=== PATIENT | male | born 1980 | race Caucasian/White ===

== ENCOUNTER → 2021-01-06 | Outpatient (CLI) | payer OTHER ==
--- NOTE | 2021-01-06 11:42 | XR ---
EXAMINATION TYPE: XR chest 2V DATE OF EXAM: 01/06/2021 COMPARISON: NONE HISTORY: Chest pain TECHNIQUE: Frontal and lateral views of the chest are obtained. FINDINGS: There is no focal air space opacity. No evidence for pneumothorax. No pleural effusion. The cardiac silhouette size is within normal limits. The osseous structures are grossly intact. IMPRESSION: 1. No acute cardiopulmonary process.
== END | disposition home or self-care (01) ==
LOC: RADXRMAIN 10:51
PROVIDERS: ATTEND Orthopaedic Surgery Orthopaedic Surgery of the Spine
DX: R07.9 Chest pain, unspecified (principal)
CPT/HCPCS: 71046

== ENCOUNTER → 2021-01-20 | Outpatient (CLI) | payer OTHER ==
--- NOTE | 2021-01-21 03:24 | MR ---
EXAMINATION TYPE: MR lumbar spine wo con DATE OF EXAM: 01/20/2021 COMPARISON: None HISTORY: Back pain into left buttocks/leg Multiplanar multiecho imaging of the lumbar spine was performed with no contrast. Lumbar vertebra have fairly normal alignment. There is slight decreased signal in the disks at L4-5 a nd L5-S1. There is no significant disc space narrowing. Lumbar nerve roots appear normal. The lumbar neural foramina are fairly well-maintained. There is no compression fracture. There is a small collections professional ior disc bulge at L4-5 and slightly elevating the posterior longitudinal ligament. There is developme ntally adequate spinal canal. There is no spinal stenosis. There is no lumbar paraspinal mass. Sacroi liac joints are intact. IMPRESSION: Small posterior L4-5 lumbar disc herniation without impingement on the neural elements. No fracture. Minor degenerative disc signal changes at L4-5 and L5-S1.
== END | disposition home or self-care (01) ==
LOC: RADMRIMAIN 06:04
PROVIDERS: ATTEND Orthopaedic Surgery Orthopaedic Surgery of the Spine
DX: S39.012A Strain of muscle, fascia and tendon of lower back, initial encounter (principal); M16.12 Unilateral primary osteoarthritis, left hip; R53.1 Weakness; M47.817 Spondylosis without myelopathy or radiculopathy, lumbosacral region; M54.10 Radiculopathy, site unspecified; X58.XXXA Exposure to other specified factors, initial encounter
CPT/HCPCS: 72148

== ENCOUNTER → 2022-01-25 | Outpatient (CLI) | payer OTHER ==
[2022-01-25 13:00] LABS: Partial Thromboplastin Time 23.5 sec (22.0-30.0); Prothrombin Time 10.6 sec (9.0-12.0)
[2022-01-25 13:02] LABS: Appearance,Urine Clear (Clear); Bilirubin,Urine Negative (Negative); Blood,Urine Negative (Negative); Color,Urine Light Yellow; Glucose,Urine (UA) Negative (Negative); Ketones,Urine Negative (Negative); Leukocyte Esterase,Urine Negative (Negative); Nitrite,Urine Negative (Negative); Protein,Urine Negative (Negative); Specific Gravity,Urine 1.011 (1.001-1.035); Urobilinogen,Urine <2.0 mg/dL (<2.0)
--- NOTE | 2022-01-25 13:34 | XR ---
EXAMINATION TYPE: XR chest 2V DATE OF EXAM: 01/25/2022 COMPARISON: 01/06/2021 HISTORY: 41-year-old male presurgical testing prior to back surgery TECHNIQUE: Frontal and lateral views FINDINGS: Heart normal size. Some surgical clips along the mediastinum. Aorta and pulmonary vasculature within normal limits. Additional surgical clips of the left axilla. No consolidation or pleural effusion. Pu lmonary vasculature within normal limits. IMPRESSION: Some surgical clips within the mediastinum and left axilla. No acute cardiopulmonary process.
[2022-01-25 18:36] LABS: Basophils # (A) 0.02 X 10*3/uL (0.00-0.10); Basophils % (A) 0.4 %; Eosinophils # (A) 0.06 X 10*3/uL (0.04-0.35); Eosinophils % (A) 1.2 %; HCT 44.9 % (39.6-50.0); HGB 14.7 g/dL (13.0-17.0); Immature Grans, Automated 0.2 %; Lymphocytes # (A) 1.22 X 10*3/uL (0.90-5.00); Lymphocytes % (A) 25.1 %; MCHC 32.7 g/dL (32.0-37.0); MCV 91.6 fL (80.0-97.0); Mean Platelet Volume 9.8 fL (9.5-12.2); Monocytes # (A) 0.38 X 10*3/uL (0.20-1.00); Monocytes % (A) 7.8 %; NRBC Per 100 WBC 0 /100 WBCS (0.0-0.0); Neutrophils # (A) 3.18 X 10*3/uL (1.80-7.70); Neutrophils % (A) 65.3 %; Platelet Count 226 X 10*3/uL (140-440); RDW 12.4 % (11.5-14.5); WBC 4.87 X 10*3/uL (4.50-10.00)
[2022-01-25 19:00] LABS: African American GFR (CKD) 95.5 (60.0-200.0); Anion Gap 10.3 mmol/L (10.00-18.00); BUN/Creat Ratio 15.45 Ratio (12.00-20.00); Calcium 9.7 mg/dL (8.7-10.3); Carbon Dioxide 24.7 mmol/L (20.0-27.5); Non-African American GFR(CKD) 82.4 (60.0-200.0); Potassium 4.4 mmol/L (3.5-5.5)
== END | disposition home or self-care (01) ==
LOC: LABPAT 11:19
PROVIDERS: ATTEND Orthopaedic Surgery Orthopaedic Surgery of the Spine
DX: Z01.818 Encounter for other preprocedural examination (principal); Z01.812 Encounter for preprocedural laboratory examination; M54.10 Radiculopathy, site unspecified
CPT/HCPCS: 71046; 80048; 81003; 85025; 85610; 85730; 93005

== ENCOUNTER 2022-02-02 14:17 | Day surgery (SDC) | payer OTHER ==
[2022-01-31 15:26] VITALS: BMI 26.1
[~2022-02-02 14:17] MED LIST: DEXAMETHASONE SOD PHOSPHATE 4 MG/ML 1 ML VIAL IV ONE; LACTATED RINGERS 1,000 ML IV SCH; LIDOCAINE 1% (10MG/ML) FOR IV START INTRADERMA PRN; MIDAZOLAM 2 MG/2 ML VIAL IV PRN; ONDANSETRON 4 MG/2 ML VIAL IVP ONE
[2022-02-02 14:41] VITALS: TEMP 97.2
[2022-02-02] MEDS ORDERED: MIDAZOLAM 2 MG/2 ML VIAL ONE (15:50)
[2022-02-02] MEDS ORDERED: ePHEDrine 50 MG/ML 1 ML VIAL ONE (15:50)
[2022-02-02] MEDS ORDERED: HYDROmorphone (PF) 1 MG/ML ONE (15:50)
[2022-02-02] MEDS ORDERED: SUCCINYLCHOLINE CHLORIDE 100 MG/5 ML SYR IV ONE (15:50)
[2022-02-02] MEDS ORDERED: fentaNYL (PF) 50 MCG/ML 2 ML AMP ONE (15:50)
[2022-02-02] MEDS ORDERED: ROCURONIUM 10 MG/ML (5 ML VIAL) IV ONE (15:50)
[2022-02-02] MEDS ORDERED: PHENYLEPHRINE-0.9% NACL SYG 1,000 MCG/10 ML SYRINGE ONE (15:50)
[2022-02-02] MEDS ORDERED: LIDOCAINE 2% INJ 20 MG/ML (2 ML VIAL) ONE (15:50)
[2022-02-02] MEDS ORDERED: GLYCOPYRROLATE 0.2 MG/ML 2 ML VIAL ONE (15:50)
[2022-02-02] MEDS ORDERED: NEOSTIGMINE 1 MG/ML 10 ML VIAL ONE (15:50)
[2022-02-02] MEDS ORDERED: PROPOFOL 10 MG/ML 20 ML VIAL IV ONE (15:50)
[2022-02-02] MEDS ORDERED: LIDOCAINE 0.5%-EPI 1:200,000 50 ML VIAL SQ ONE (16:28)
[2022-02-02] MEDS ORDERED: GELATIN SPONGE,ABSORB (LARGE) 1 EACH SPONGE TOPICAL ONE (16:28)
[2022-02-02] MEDS ORDERED: THROMBIN (BOVINE) 5,000 UNIT VIAL MISCELLANE ONE (16:29)
[2022-02-02] MEDS ORDERED: methylPREDNISolone ACETATE 80 MG/ML 1 ML VIAL MISCELLANE ONE (17:06)
[2022-02-02] MEDS ORDERED: HYDROmorphone 1 MG/ML 1 ML SYRINGE IVP PRN (17:53)
[2022-02-02] MEDS ORDERED: HYDROmorphone 0.5 MG/0.5 ML SYRINGE IVP PRN (17:53)
[2022-02-02] MEDS ORDERED: ONDANSETRON 4 MG/2 ML VIAL IVP PRN (17:53)
[2022-02-02] MEDS ORDERED: BENZOCAINE/MENTHOL LOZENG 1 EACH LOZENGE MUCOUS MEM PRN (17:53)
[2022-02-02] MEDS ORDERED: HYDROcodone/APAP 5-325MG 1 EACH TAB PO PRN (17:53)
[2022-02-02] MEDS ORDERED: CYCLOBENZAPRINE 10 MG TAB PO PRN (17:53)
[2022-02-02] MEDS ORDERED: LORATADINE 10 MG TAB PO PRN (17:54)
[2022-02-02] MEDS ORDERED: IBUPROFEN 600 MG TAB PO PRN (17:54)
[2022-02-02] MEDS ORDERED: KETOROLAC 15 MG/ML 1 ML VIAL IVP SCH (18:00)
[2022-02-02] MEDS ORDERED: SODIUM CHLORIDE 0.9% 1,000 ML IV SCH (18:00)
--- NOTE | 2022-02-02 18:07 | P.OP ---
Date of Procedure: 02/02/22 Preoperative Diagnosis: Herniated nucleus pulposus L3 4 L4 5, lower extremity radiculopathy, low back pain, lower extremity pain Postoperative Diagnosis: Same Anesthesia: GETA Pathology: none sent Condition: stable Disposition: PACU Description of Procedure: BRIEF OPERATIVE NOTE Preoperative Diagnosis:Herniated nucleus pulposus L3 4 L4 5, lower extremity radiculopathy, low back pain, lower extremity pain Postoperative Diagnosis:Herniated nucleus pulposus L3 4 L4 5, lower extremity radiculopathy, low back pain, lower extremity pain Procedure: Laminectomy and decompression L3 4 L4 5 Discectomy for decompression L3 4 L4 5 on the left Surgeon: Dr. Mcneill Slipman: Gil Keenan is present throughout the entire the case per sistence during positioning, dissection, exposure, visualization, and all crucial elements of the case as well as closure. Anesthesia: General anesthesia Estimated blood loss: Approximately 50 mL Complications: None apparent Components implanted: None Disposition: To recovery room in good stable condition. OPERATIVE INDICATIONS The patient has been having issues in their lower back and lower extremities. He initially started having pain after sustaining injury at work when he was lifting an object and applied came down on him. Patient has been having conservative treatment and aggressive conservative care over the past year. Patient has been having significant low back pain with lower extremity radicular symptoms. He has been through medications physical therapy and interventional pain management. The patient has been through conservative treatment. His symptoms were worsening despite conservative care and we discussed possibly of surgical options. Patient had evidence of disc herniation at L3 4 and L4 5 causing some foraminal encroachment. We felt that surgery may give him a chance of improvement of his symptoms. We discussed various treatment options including surgery, and the patient wishes to proceed with surgery We discussed the risk, patient's alternatives and benefits of surgery including but not limited to, risk of bleeding risk of infection, risk of need for further surgery, risk of decreased, loss of motion, loss of function, nerve damage, paralysis, heart attack, blindness and . OPERATIVE SUMMARY After discussing all the risks, patient alternatives and benefits at length, the patient elected to proceed with surgical intervention, signed informed consent, and presented for their procedure. The patient was seen and examined in the preoperative holding area and the surgical site was marked. The patient was given antibiotics and brought to the operating room. The patient was sedated and intubated by anesthesia in standard fashion. The edmond cantrell was positioned on to the operating room table in a prone position on the appropriate frame which was well-padded and well molded. We were careful to pad any bony prominences and pressure points. We were careful to maintain the patient's cervical spine and good neutral alignment and position throughout. The patient was prepped and draped in a normal standard fashion. An appropriate timeout and keystone protocol performed. We were able to proceed with the surgery. Fluoroscopy was utilized to establish the appropriate level at L3 4 and 5. The local wound area was infiltrated with local anesthetic. An incision was made at the midline longitudinally over the appropriate levels. Dissection was taken down subcutaneously to the level of the fascia which was split midline. Dissection was taken over the lamina. Intraoperative fluoroscopy was taken which showed a marker at the appropriate level at L3 4 and L4 5. With the appropriate level positively confirmed, we were able to proceed with laminectomy starting at L3 4 and then moving L4 5. The wound was copiously irrigated and suctioned dry as had been done periodically throughout the case. I performed a laminectomy with a combination of curettes and a high-speed bur and Kerrison rongeurs. A small medial facetectomy was performed again further access. A partial foraminotomy was also performed. Portions of the ligamentum flavum were taken down to expose the dura and traversing nerve root. I was able to mobilize the traversing nerve root and gain access to the disc space. Note was made of obvious compression from the disc, a reasonable levels. There is some adhesions around the traversing nerve root and around L3 4 on the left side I was able to take these down and then performed a discectomy getting more latasha kevin mobile nerve root and decreasing the compression along the area. Similarly there is compression L4 5 particular to the left side. I was able to cross the midline at the level of disc for further decompression as well. There was some adhesions along the traversing nerve root and this was taken down. With this there was some small dural abrasions without any evidence of leak at L4 5. There is no tear noted. I felt to be useful to place Tisseel over the area of the abrasion to help account for some healing. After the decompression discectomy I was able place some Tisseel over the abrasion appropriately. At each of the levels I was able to perform a laminectomy with partial medial facetectomy and foraminotomy with discectomy. Protecting the soft tissue structures, a small annulotomy was established. I was able to perform discectomy and remove any extruded disc fragments and any loose fragments from within the disc itself. I tried to preserve the disc annulus that appeared s table. There were no further extruded fragments noted. There is no evidence of dural tear or leak. I Did place Tisseel over a superficial abrasion of the dura at L4 5 without any evidence of leak .Good hemostasis maintained. The wound was copiously irrigated and suctioned dry. Good decompression and discectomy was noted. We were able to proceed with closure. The fascia was closed for a watertight closure. The subcuticular tissue was closed with absorbable suture. The wound was cleaned and dried and dressed with the appropriate dressing. The drapes were broken down. The patient was gently rolled back onto their hospital bed being careful to maintain their cervical spine and good neutral alignment and position. They were woken up by anesthesia, extubated, and brought to the recovery room in good stable condition. The patient will be admitted to the hospital for observation and for appropriate postoperative care, medical management and monitoring. We will continue to follow them closely about the postoperative course.
[2022-02-02] MEDS: HYDROmorphone 0.5 MG/0.5 ML SYRINGE IVP PRN ×2 (18:17→18:25)
[2022-02-02] MEDS ORDERED: KETOROLAC 15 MG/ML 1 ML VIAL IVP ONE (18:41)
[2022-02-02] MEDS ORDERED: HYDROcodone/APAP 5-325MG 1 EACH TAB ONE (18:44)
[2022-02-02 19:14] VITALS: BP 154/87; PULSE 65; RESP 18
[2022-02-02] MEDS ORDERED: GABAPENTIN 300 MG CAP PO SCH (22:00)
--- NOTE | 2022-02-03 11:46 | FL ---
Fluoroscopy INDICATION: Pain FINDINGS: Fluoroscopy time: 1 seconds. Images obtained: 1. IMPRESSIONS: 1. Documentation of fluoroscopy.
== END 2022-02-02 19:28 | disposition home or self-care (01) ==
LOC: OR 14:17
PROVIDERS: ATTEND Orthopaedic Surgery Orthopaedic Surgery of the Spine
DX: M51.16 Intervertebral disc disorders with radiculopathy, lumbar region (principal); R51.9 Headache, unspecified; Z79.1 Long term (current) use of non-steroidal anti-inflammatories (NSAID); Z79.891 Long term (current) use of opiate analgesic; Z79.899 Other long term (current) drug therapy; Z91.048 Other nonmedicinal substance allergy status; Z98.890 Other specified postprocedural states
CPT/HCPCS: 72020; 63030; 63035; C1762; J2250; J1040; J2710; J0690; J2405; J3010; J1170 ×2; J1885; J2370; J0330; J2704; J2001

== ENCOUNTER → 2023-05-12 | Outpatient (CLI) | payer OTHER ==
--- NOTE | 2023-05-24 16:04 | MR ---
EXAMINATION TYPE: MR lumbar spine wo/w con DATE OF EXAM: 05/12/2023 9:39 PM COMPARISON: 01/20/2021 HISTORY: Low back pain CONTRAST: The patient was injected with 8.5 mL intravenous Gadavist gadolinium contrast. Multiplanar, MultiSpin echo imaging of the lumbar spine was performed. L1-L2: Normal disc appearance without desiccation. No herniation, protrusion or disc bulging. No ca nal stenosis is present. Foramina are patent bilaterally. L2-L3: Normal disc appearance without desiccation. No herniation, protrusion or disc bulging. No ca nal stenosis is present. Foramina are patent bilaterally. L3-L4: Mild disc desiccation with minimal posterior disc bulge. No herniation or central stenosis. Th e foramina are patent bilaterally. L4-L5: [id number] disc desiccation noted with small left paracentral disc protrusion. There modesta ears to be left lateral recess stenosis and left foraminal encroachment. Overall appearance is stable relative to prior examination. L5-S1: Mild to moderate disc desiccation. Far lateral into the right broad-based subligamentous disc herniation situated at the level of the right neural foramen. There is right foraminal encroachment a nd right lateral recess stenosis. Overall appearance is unchanged. No evidence for central stenosis. Lumbar segments are intact. No paraspinal masses are identified. Conus medullaris has a normal appe arance. IMPRESSION: 1. Multilevel degenerative disc disease. 2. Far lateral and to the right broad-based subligamentous disc herniation at L5-S1 with right forami nal encroachment and right lateral recess stenosis. 3. Small left paracentral disc protrusion L4-5 with left lateral recess stenosis.
== END | disposition home or self-care (01) ==
LOC: RADMRIMAIN 21:00
PROVIDERS: ATTEND Orthopaedic Surgery Orthopaedic Surgery of the Spine
DX: M51.17 Intervertebral disc disorders with radiculopathy, lumbosacral region (principal); S39.012D Strain of muscle, fascia and tendon of lower back, subsequent encounter; Z47.89 Encounter for other orthopedic aftercare; E66.3 Overweight; M48.061 Spinal stenosis, lumbar region without neurogenic claudication; M51.27 Other intervertebral disc displacement, lumbosacral region; X58.XXXD Exposure to other specified factors, subsequent encounter
CPT/HCPCS: 72158; A9585